=== PATIENT | male | born 1940 | race Caucasian/White ===

== ENCOUNTER 2024-05-13 01:08 | Emergency (ER) | payer MEDICARE, BC ==
[~2024-05-13] VITALS: Ht 188 cm; Wt 93.0 kg
[2024-05-13 01:50] LABS: BASOPHILS % (AUTO) 0.9 % (0.0-2.0); EOSINOPHILS # (AUTO) 0.1 K/uL (0.0-0.7); EOSINOPHILS % (AUTO) 1.3 % (0.0-7.0); HEMATOCRIT 33.7 % (36.7-47.1); HEMOGLOBIN 11.4 g/dL (12.5-16.3); LYMPHOCYTES # (AUTO) 1.3 K/uL (0.8-4.8); LYMPHOCYTES % (AUTO) 27.1 % (20.5-51.5); MEAN CORPUSCULAR HEMOGLOBIN 31.5 uug (23.8-33.4); MEAN CORPUSCULAR HGB CONC 34 g/dL (32.5-36.3); MEAN CORPUSCULAR VOLUME 93.3 fL (73.0-96.2); MONOCYTES # (AUTO) 0.9 K/uL (0.1-1.30); MONOCYTES % (AUTO) 17.5 % (0.0-11.0); NEUTROPHILS # (AUTO) 2.6 K/uL (1.8-8.9); NEUTROPHILS % (AUTO) 53.2 % (38.5-71.5); PLATELET COUNT (AUTO) 140 K/uL (152-348); RED BLOOD CELL COUNT(AUTO) 3.61 MIL/uL (4.06-5.63); RED CELL DISTRIBUTION WIDTH 14.8 % (12.1-16.2); WHITE BLOOD COUNT (AUTO) 4.9 K/uL (3.6-10.2)
[2024-05-13 01:53] LABS: DIFFERENTIAL COMMENT 1
[2024-05-13] MEDS ORDERED: QUET25TA PO (01:53)
[2024-05-13 01:54] LABS: NEUTROPHILS % (MANUAL) 0 % (42-75)
[2024-05-13 01:59] LABS: AMMONIA 12 umol/L (11-32)
[2024-05-13] MEDS ORDERED: LORAZEPAM 2 MG/1 ML VIAL ONE (02:13)
[2024-05-13] MEDS: LORAZEPAM 2 MG/1 ML VIAL IV ONE (02:20)
[2024-05-13 02:33] LABS: CARBON DIOXIDE 26 mmol/L (21-32); CHLORIDE 104 mmol/L (98-107); CREATININE 2.8 mg/dL (0.6-1.3); GLUCOSE 137 mg/dL (74-106); POTASSIUM 4.2 mmol/L (3.5-5.1); SODIUM SERUM 138 mmol/L (136-145); UREA NITROGEN, BLOOD 18 mg/dL (7-18)
[2024-05-13 02:42] LABS: ALANINE AMINOTRANSFERASE 8 U/L (16-63); ALKALINE PHOSPHATASE 136 U/L (50-136); ASPARTATE AMINOTRANSFERASE 14 U/L (15-37); BILIRUBIN,TOTAL 0.6 mg/dL (0.2-1.0); NT-PRO BNP 735 pg/mL (0-125); TOTAL PROTEIN, SERUM 7.6 g/dL (6.4-8.2)
[2024-05-13 03:28] LABS: *BILIRUBIN,URIN NEGATIVE (NEGATIVE); *CLARITY,URINE CLEAR (CLEAR); *COLOR,URINE YELLOW (YELLOW); *KETONES,URINE NEGATIVE (NEGATIVE); *PROTEIN,URINE 1+ (NEGATIVE); *UROBILINOGEN,URINE 0.2 E.U./dl (NORMAL); LEUKOCYTE ESTERASE ,URINE NEGATIVE (NEGATIVE); NITRITE, URINE NEGATIVE (NEGATIVE); UGLUCOSE NEGATIVE (NEGATIVE)
[2024-05-13 03:32] LABS: *BLOOD, URINE TRACE (NEGATIVE)
[2024-05-13 03:33] LABS: BACTERIA,URINE NONE SEEN /HPF (NONE SEEN); RBC,URINE 0-3 /HPF (0-3); SQUAMOUS EPITHELIAL CELL,UR NONE SEEN /HPF (NONE SEEN); WBC,URINE NONE SEEN /HPF (0-3)
[2024-05-13] MEDS ORDERED: diphenhydrAMINE 50 MG/1 ML VIAL ONE (06:33)
[2024-05-13] MEDS: diphenhydrAMINE 50 MG/1 ML VIAL IV ONE (06:39)
[2024-05-13 08:23] VITALS: BP 156/63; TEMP 98; O2SAT 96
== END 2024-05-13 08:26 | disposition home or self-care (01) ==
LOC: ER 01:12
DX: R53.1 Weakness (principal); F03.90 Unspecified dementia, unspecified severity, without behavioral disturbance, psychotic disturbance, mood disturbance, and anxiety; Z79.899 Other long term (current) drug therapy; Z95.2 Presence of prosthetic heart valve
CPT/HCPCS: 99285; 96374; 70450; 96375; 80053; 81001; 82140; 83880; 85025; 84484; 36415; 93005; 85007; J1200; J2060; 70030-TC; A4606; A4663; C1758